=== PATIENT | male | born 1955 | race Caucasian/White ===

== ENCOUNTER → 2020-01-18 13:38 | Outpatient (CLI) | payer OTHER, SELFPAY ==
[2020-01-19 07:08] LABS: COVID19 Sendout Not Detected (Not Detect)
== END ==
PROVIDERS: PCP Family Medicine; Visit Provider Physician Assistant
DX: Z01.818 Encounter for other preprocedural examination (principal)
CPT/HCPCS: 87635

== ENCOUNTER 2020-01-21 06:44 | Day surgery (SDC) | payer OTHER, SELFPAY ==
[2020-01-20 11:28] VITALS: BMI 31.3
[2020-01-21] VITALS (7 sets, daily range): BP systolic 93–140; BP diastolic 58–98; PULSE 53–65; RESP 13–20; TEMP 36.3–36.7; O2SAT 93–96; BMI 31.3
[2020-01-21] MEDS: LACTATED RINGERS 1,000 ML 100 ML IV (07:20)
--- NOTE | 2020-01-21 07:25 | PM.HP.1 ---
History of Present Illness History of Present Illness Date Patient Seen: 01/21/20 Time Patient Seen: 07:30 Chief complaint: [id number] OPEN UMBILICAL HERNIA W/MESH Narrative: 64-year-old male with a symptomatic umbilical hernia here for elective repair. Please see his H and P from June 2019 for further detail. There been no interval changes in his health. Patient History Surgical History History of tonsillectomy (Acute) S/P cataract surgery (Resolved) Family & Social History Family History Father History of blood clots Mother Hypertension Social History: household members spouse Tobacco & Substance use: Smoking Status Never smoker Meds Home Medications and Allergies Home Medications Medication Instructions Recorded Confirmed Type multivitamin [Multiple Vitamins] 1 tab PO QDAY #0 11/20/17 01/21/20 History Allergies Allergy/AdvReac Type Severity Reaction Status Date / Time No Known Drug Allergies Allergy Verified 01/21/20 07:12 Review of Systems Review of Systems Narrative: A 10 point review of systems is negative except as noted in the HPI Exam Narrative Exam Narrative: General-no acute distress, well nourished HEENT-moist mucous membranes, no scleral icterus Neck-supple, no lymphadenopathy Chest- non labored respirations, clear to auscultation bilaterally Cardiac-regular rate no peripheral edema Abdomen-soft, reducible umbilical hernia Extremities-warm, well perfused Neurological-alert and oriented, no focal deficits Assessment & Plan Assessment & Plan narrative: 64-year-old male with a symptomatic umbilical hernia here for elective repair. His COVID testing is negative. We discussed the technical nature of the operation the expected postoperative recovery and the associated surgical risks of bleeding infection hernia recurrence intestinal injury, and seroma. His questions have been answered he is in agreement with this plan will proceed to the operating room. COVID-19 COVID-19 status: Negative Result date/Date tested (Pos, Neg/Pending): 01/18/20
[2020-01-21] MEDS: CEFAZOLIN 2 GM/100 ML FROZ.PIGGY IV (07:42)
--- NOTE | 2020-01-21 08:01 | SUR.OPER ---
Supine on padded OR bed, head on pillow, arms secured on padded arm boards at <90 degrees abduction, legs uncrossed, safety belt at thigh, tape over blanket over lower legs.
[2020-01-21] MEDS: BUPIVACAINE 0.25% (PF) VIAL 30 ML INJ (08:07)
--- NOTE | 2020-01-21 08:50 | P.OP_ITS ---
Operative Date/Time/Diagnoses Date of procedure: 01/21/20 Time of procedure: 08:50 Pre-op diagnosis: Umbilical hernia Post-op diagnosis: same Procedure & Clinicians Procedure: Open umbilical hernia repair with mesh Same procedure as scheduled: Yes Indications: 64-year-old male with a symptomatic umbilical hernia Surgeon: Derek Reynoso Anesthesia Type: General Operative Notes Findings: Umbilical hernia containing viable omentum Specimen(s): none sent Estimated Blood Loss (mL): 10 Procedure in detail: Patient was brought to the operating room placed supine on the table. Bilateral lower extremity compression devices were applied. General anesthesia was inducedand they were intubated with an endotracheal tube. They received 2 g of Ancef prior to skin incision. They were prepped and draped in sterile fashion. A time-out was performed ensure the correct patient procedure necessary equipment within the operating room. A curvilinear incision was made inferior to the umbilicus. The subcutaneous tissues were divided. The umbilical hernia was identified and was dissected off the umbilicus and circumferentially sharply. The umbilical hernia sac was opened carefully using [place] and contained viable omentum. The hernia sac was then closed with 3 0 Vicryl suture. The sac was reduced into the abdomen and the fascia was cleared from above in order to accommodate the mesh. The fascial defect was 3 cm in diameter. The fascial edges were then reapproximated with a [id number] 0 PDS suture. A Bard Ventralex ST hernia patch 6 cm was inserted over the fascial defect. It was secured to the fascia using 0 Prolene suture in interrupted fashion. The subcutaneous tissues were reapproximated using 3 0 Vicryl skin closed with 4 0 Monocryl upon by the application of Dermabond and Steri-Strips. Sponge instrument count at the end of the operation was correct. Patient tolerated procedure well was extubated and transferred to postoperative care unit in stable condition. Complications: none Post-operative Condition: stable Disposition: same day surgery
== END 2020-01-21 10:01 | disposition home or self-care (01) ==
PROVIDERS: PCP Family Medicine; Referring Provider Surgery; Visit Provider Surgery
PROC: (CPT 49585; principal; 2020-01-21 07:45)
DX: K42.9 Umbilical hernia without obstruction or gangrene (principal)
CPT/HCPCS: 49585; C1781; J0690; J1100; J2405; J2704; J3010

== ENCOUNTER → 2023-10-04 07:56 | Outpatient (CLI) | payer OTHER, SELFPAY | LOC: CAR 07:56 | PROVIDERS: PCP Family Medicine; Referring Provider Family Medicine; Visit Provider Family Medicine | DX: I48.91 Unspecified atrial fibrillation (principal); I48.92 Unspecified atrial flutter | CPT/HCPCS: 93246 ==

== ENCOUNTER → 2023-10-16 08:04 | Outpatient (CLI) | payer OTHER, SELFPAY ==
--- NOTE | 2023-10-16 08:05 | DI.ECHO.S_ITS ---
[facility]---------+ [facility] +---------+ : : [address] [place] : : : : [id number] : : : : Phone: [phone]+ Echocardiogram Report + + :Name: LEE BEDOYA Study Date: 10/16/2023 Height: 68 in : :[facility] ReadingLocation: [id number] Weight: 205 lb : : Gender: Male BSA: 2.1 m2 : :: 1955 Age: 68 yrs BP: 144/105 mmHg: :Reason For Study: UNSPECIFIED ATRIAL FIBRILLATION : :Ordering Physician: DAVID, : :[place] Performed By: José Miguel Chen : :Referring: MASON HERNANDEZ : + + Interpretation Summary Normal left ventricle size with ejection fraction 55-60%. Mild aortic regurgitation. Mild mitral regurgitation. Procedure: A two-dimensional transthoracic echocardiogram with color flow and Doppler was performed. The study quality was technically adequate. There is no prior echocardiogram noted for this patient. The patient was in atrial fibrillation with heart rates between 83-122 bpm during the exam. Left Ventricle: The left ventricle is normal in size and wall thickness. The ejection fraction is estimated to be 55-60%. There are no obvious focal wall motion abnormalities noted but poor endocardial definition reduces the sensitivity for the detection of such. Diastolic function could not be accurately assessed due to atrial fibrillation. Right Ventricle: The right ventricle is normal in size and function. Atria: The left atrial size is normal. Right atrial size is normal. Mitral Valve: The mitral valve is normal in structure and function. There is no mitral valve stenosis. There is mild mitral regurgitation. Aortic Valve: The aortic valve is trileaflet. There is no aortic valve stenosis. There is mild aortic regurgitation. Tricuspid Valve: The tricuspid valve is normal in structure and function. There is no tricuspid stenosis. There is trace tricuspid regurgitation. The right ventricular systolic pressure is estimated to be at least 30 mmHg based on an estimated right atrial pressure of 3 mm Hg. Pulmonic Valve: The pulmonic valve is not well visualized. There is no pulmonic valvular stenosis. There is no pulmonic valvular regurgitation. Great Vessels: The aortic root is normal size. The dimensions of the ascending aorta are normal. The IVC is of normal diameter and collapses greater than 50% with a sniff. This suggests a low right atrial pressure of 3 mm Hg. Pericardium/ Pleura There is no pericardial effusion. There is no pleural effusion. MMode/2D Measurements & Calculations LVIDd: 4.5 cm LVOT diam: 2.1 cm LVIDs: 3.3 cm Ao root diam: 3.1 cm FS: 28.3 % asc Aorta Diam: 3.5 cm IVSd: 1.1 cm LVPWd: 0.88 cm LV fierro. diameter/BSA (cm/m^2): 2.2 LV sys. diameter/BSA (cm/m^2): 1.6 LA A2 area: 22.8 cm2 RA long axis: 5.6 cm LA A4 area: 17.7 cm2 RA area: 17.5 cm2 LA length (vol): 5.2 cm RA vol: 46.1 ml LA vol: 66.0 ml RA : 22.3 ml/m2 LA vol index: 32.0 ml/m2 IVC diam: 1.6 cm RVD1 (basal): 3.7 cm RVD2 (mid): 3.2 cm TAPSE: 1.9 cm Doppler Measurements & Calculations Ao V2 max: 115.5 cm/sec LVOT Max Satish: 78.0 cm/sec Ao V2 mean: 85.7 cm/sec LV V1 max P.4 mmHg Ao max P.3 mmHg LV V1 VTI: 14.5 cm Ao mean P.2 mmHg BRANDAN(I,D): 2.4 cm2 Ao V2 VTI: 20.7 cm BRANDAN(V,D): 2.3 cm2 sev ratio: 0.70 BRANDAN indexed to BSA (cm^2/m^2): 1.1 MV E max satish: 85.9 cm/sec TR max satish: 259.4 cm/sec MV A max satish: 29.9 cm/sec TR max P.9 mmHg MV E/A: 2.9 PA V2 max: 144.4 cm/sec MV dec time: 0.12 sec PA V2 mean: 89.3 cm/sec PA mean P.9 mmHg PA pr(Accel): 43.6 mmHg SV(LVOT): 48.8 ml Electronically signed by: Maritza Sargent on Reading Physician:10/16/2023 09:21 PM
== END ==
PROVIDERS: PCP Family Medicine; Referring Provider Family Medicine; Visit Provider Family Medicine
DX: I08.0 Rheumatic disorders of both mitral and aortic valves (principal); I48.91 Unspecified atrial fibrillation
CPT/HCPCS: 93306

== ENCOUNTER → 2023-10-30 13:46 | Outpatient (CLI) | payer OTHER, SELFPAY ==
--- NOTE | 2023-10-30 13:47 | DI.NM.S_ITS ---
PROCEDURE: NM KARRIE PERF SPECT REST & STR Rest and exercise myocardial perfusion SPECT with gated imaging and ejection fraction RADIOPHARMACEUTICAL: 26.2 mCi Tc-99m sestamibi IV at rest and 25.3 mCi Tc-99m sestamibi IV at peak exercise. A 2 day-protocol was performed. INDICATIONS: Paroxysmal atrial fibrillation PQRS ATTESTATIONS: Measure 322 - Is this imaging test primarily performed on a low-risk surgery patient for preoperative evaluation within 30 days preceding their low-risk non-cardiac surgery? Low-risk surgery is defined as cardiac or myocardial infarction less than 1%, including (but not limited to) endoscopic procedures, superficial procedures, cataract surgery, and excisional breast surgery: Answer: No Measure 323 - Is this imaging test performed primarily for the monitoring of an asymptomatic patient who had percutaneous coronary intervention on the visit date or within 2 years of the visit date? Answer: No Measure 324 - Is this imaging test performed primarily for the initial detection and risk assessment on an asymptomatic, low coronary heart disease patient? Low CHD risk definition = clinicians should consider the maximum number of available patient factors used to estimate risk based on Marshall (ATP III criteria), typically age, gender, diabetes, smoking status, and use of blood pressure medication, and integrate age appropriate estimates for missing elements, such as LDL or standard blood pressure. Answer: No TECHNIQUE: Radiopharmaceutical was injected at peak stress test, and also at rest. SPECT images were obtained. SPECT myocardial perfusion images were displayed in short axis, horizontal long axis, and vertical long axis views. Gated images were reviewed using PingMDQUANT software. COMPARISON: None. CARDIAC STRESS: A standard [place] treadmill exercise tolerance test was performed by the patient under the supervision of an attending staff. The patient exercised for 8 minutes and 31 seconds; functional aerobic impairment (HOLLY) is -15 %. Hemodynamic data: There is normal blood pressure and heart rate response to exercise stress. Patient achieved 126% of maximum predicted heart rate at peak exercise. Maximum blood pressure was 170/110. Double product of the foot [id number]. Symptoms: Patient denied chest pain during exercise. EKG: Baseline ECG demonstrated atrial fibrillation. No changes in baseline rhythm was noted during the stress nor recovery phases. No obvious ST depression present. Nondiagnostic EKG in regards to the presence of ischemia. Test was terminated secondary to fatigue. FINDINGS: Raw data: There is good myocardial labeling by radiotracer. No significant motion artifacts. Coii-pq-mjoxj ratio is 0.26 (normal is less than 0.38 for sestamibi tracer, and less than 0.50 for thallium tracer). Left ventricle function: Gated images demonstrate normal left ventricle wall thickening. No segmental wall motion abnormality. No transient ischemic dilation; TID is 0.95 (normal less than 1.3). The left ventricle resting end-diastolic volume is 91 mL. Left ventricle stress ejection fraction is 64% ; normal values are above 45%. Myocardial perfusion: There were no perfusion defects noted in the prone stress nor rest images. However, a slight area of hypoperfusion was present in the mid anterior segment on the prone images. This most likely represents attenuation. IMPRESSION: 1. No ischemia nor infarction noted on myocardial perfusion scan. 2. Low risk stress test. Dictated by: Solomon Odell M.D. on 10/31/2023 at 16:59 Approved by: Solomon Odell M.D. on 10/31/2023 at 17:05
== END ==
PROVIDERS: PCP Family Medicine; Referring Provider Internal Medicine Cardiovascular Disease; Visit Provider Internal Medicine Cardiovascular Disease
DX: I48.0 Paroxysmal atrial fibrillation (principal)
CPT/HCPCS: 78452; 93017; A9502